=== PATIENT | female | born 1995 | race Two or more races ===

== ENCOUNTER 2017-10-09 12:23 | Emergency (ER) | payer MEDICAID ==
[~2017-10-09] VITALS: Ht 175.3 cm; Wt 110.7 kg
[~2017-10-09 12:23] MED LIST: LEVO50TA53
[2017-10-09 13:15] LABS: Basophils # (auto) 0 uL; Basophils % (auto) 0.5 % (0.0-2.0); Eosinophils # (auto) 0.1 uL; Eosinophils % (auto) 1.6 % (0.0-7.0); Hematocrit 41.7 % (36.0-46.0); Hemoglobin 14.1 g/dL (12.2-16.2); Lymphocytes # (auto) 1.8 uL; Lymphocytes % (auto) 23.3 % (10.0-50.0); Mean Corpuscular Hemoglobin 29.5 pg (28.0-32.0); Mean Corpuscular Hgb Conc. 33.7 g/dL (32.0-36.0); Mean Corpuscular Volume 87.4 fL (80.0-100.0); Monocytes # (auto) 0.6 uL; Monocytes % (auto) 8.3 % (0.0-12.0); Neutrophils # (auto) 5.1 uL; Neutrophils % (auto) 66.3 % (37.0-80.0); Nucleated Red Blood Cells % 0.1 %; Platelet Count (auto) 240 10^3/uL (140-450); Red Blood Cells 4.77 10^6/uL (4.0-5.20); Red Cell Distribution Width 13.5 % (11.8-14.3); White Blood Cell 7.7 10^3/uL (4.4-10.8)
[2017-10-09 13:29] LABS: Albumin 3.8 g/dL (3.4-5.0); BUN/Creatinine Ratio 5.6; Calcium 8.9 mg/dL (8.5-10.1); Potassium 3.7 mmol/L (3.5-5.1)
[2017-10-09 13:32] LABS: Bilirubin, Total 0.4 mg/dL (0.2-1.0); Total Protein 7.8 g/dL (6.4-8.2)
[2017-10-09 13:49] LABS: Urine Bacteria NONE SEEN /hpf (None Seen); Urine Blood Negative /uL (Negative); Urine Mucus FEW (None Seen); Urine Specific Gravity 1.012 (1.001-1.035); Urine WBC 6 /hpf (0 - 5)
[2017-10-09] MEDS ORDERED: NITROFURANTOIN (MONO) 100 mg CAP PO ONE (14:45)
[2017-10-09] MEDS ORDERED: ONDANSETRON ODT 4 MG TAB PO ONE (14:45)
[2017-10-09 15:07] VITALS: BP 125/74
== END 2017-10-09 16:20 | disposition home or self-care (01) ==
LOC: ER 12:23
DX: N39.0 Urinary tract infection, site not specified (principal)
CPT/HCPCS: 36415; 80053; 81001; 81025; 85025; 99284; Q0162

== ENCOUNTER 2018-08-31 23:38 | Emergency (ER) | payer MEDICAID ==
[~2018-08-31] VITALS: Ht 175.3 cm; Wt 93.0 kg
[2018-08-31 23:53] VITALS: BP 128/79
[2018-09-01] MEDS ORDERED: ACETAMINOPHEN/CODEINE#3 (300/30mg) TAB PO ONE (03:45)
[2018-09-01] MEDS ORDERED: IBUPROFEN 800 MG TAB PO ONE (03:45)
== END 2018-09-01 04:20 | disposition home or self-care (01) ==
LOC: ER 23:41
DX: S92.515A Nondisplaced fracture of proximal phalanx of left lesser toe(s), initial encounter for closed fracture (principal); W22.8XXA Striking against or struck by other objects, initial encounter; Y93.01 Activity, walking, marching and hiking; Y92.89 Other specified places as the place of occurrence of the external cause; Y99.8 Other external cause status
CPT/HCPCS: 73630

== ENCOUNTER 2019-03-08 22:49 | Emergency (ER) | payer MEDICAID ==
[~2019-03-08] VITALS: Ht 175.3 cm; Wt 99.8 kg
[2019-03-09 01:55] VITALS: BP 150/92
[2019-03-09] MEDS ORDERED: methylPREDNISolone SOD SUCC 125 MG/2 ML VL IM ONE (02:15)
[2019-03-09] MEDS ORDERED: cefTRIAXone SOD 1,000 MG VL IM ONE (02:15)
[2019-03-09] MEDS ORDERED: ACETAMINOPHEN/CODEINE#3 (300/30mg) TAB PO ONE (02:15)
[2019-03-09] MEDS ORDERED: LIDOCAINE 1% HCL (LOCAL ANESTH.) INJ 20ML MDV IJ ONE (02:30)
== END 2019-03-09 02:59 | disposition home or self-care (01) ==
LOC: ER 22:49
DX: J03.80 Acute tonsillitis due to other specified organisms (principal); B96.89 Other specified bacterial agents as the cause of diseases classified elsewhere
CPT/HCPCS: 96372; 99283; J0696; J2001; J2930

== ENCOUNTER 2019-03-29 17:50 | Emergency (ER) | payer MEDICAID ==
[~2019-03-29] VITALS: Ht 175.3 cm; Wt 99.8 kg
[2019-03-29 18:07] VITALS: BP 130/91
== END 2019-03-29 21:35 | disposition home or self-care (01) ==
LOC: ER 17:57
DX: S09.90XA Unspecified injury of head, initial encounter (principal); F17.210 Nicotine dependence, cigarettes, uncomplicated; W01.0XXA Fall on same level from slipping, tripping and stumbling without subsequent striking against object, initial encounter; Y93.89 Activity, other specified; Y99.8 Other external cause status; Y92.89 Other specified places as the place of occurrence of the external cause
CPT/HCPCS: 70450

== ENCOUNTER 2019-07-29 23:40 | Emergency (ER) | payer MEDICAID ==
[~2019-07-29] VITALS: Ht 175.3 cm; Wt 104.3 kg
[2019-07-30 03:07] VITALS: BP 124/70
== END 2019-07-30 04:24 | disposition home or self-care (01) ==
LOC: ER 23:40
DX: J03.80 Acute tonsillitis due to other specified organisms (principal); B96.89 Other specified bacterial agents as the cause of diseases classified elsewhere; F17.210 Nicotine dependence, cigarettes, uncomplicated

== ENCOUNTER 2020-03-13 21:11 | Emergency (ER) | payer MEDICAID ==
[~2020-03-13] VITALS: Ht 177.8 cm; Wt 111.1 kg
[2020-03-13 21:33] VITALS: BP 138/97
[2020-03-14 00:38] LABS: Basophils # (auto) 0 10 ^3/uL (0-0.2); Basophils % (auto) 0.3 % (0.0-2.0); Eosinophils # (auto) 0.1 10 ^3/uL (0-0.8); Hematocrit 45.6 % (36.0-46.0); Hemoglobin 15.2 g/dL (12.2-16.2); Lymphocytes # (auto) 1.5 10 ^3/uL (0.4-5.4); Lymphocytes % (auto) 25.4 % (10.0-50.0); Mean Corpuscular Hemoglobin 29.8 pg (28.0-32.0); Mean Corpuscular Hgb Conc. 33.4 g/dL (32.0-36.0); Mean Corpuscular Volume 89.3 fL (80.0-100.0); Monocytes # (auto) 0.5 10 ^3/uL (0-1.3); Monocytes % (auto) 9.4 % (0.0-12.0); Neutrophils # (auto) 3.7 10 ^3/uL (1.6-8.6); Neutrophils % (auto) 63.9 % (37.0-80.0); Platelet Count (auto) 184 10^3/uL (140-450); White Blood Cell 5.8 10^3/uL (4.4-10.8)
[2020-03-14 00:57] LABS: Albumin 3.7 g/dL (3.4-5.0); Calcium 8.6 mg/dL (8.5-10.1); Potassium 3.5 mmol/L (3.5-5.1)
[2020-03-14 00:59] LABS: BUN/Creatinine Ratio 8.1
[2020-03-14 01:02] LABS: Bilirubin, Total 0.3 mg/dL (0.2-1.0); Total Protein 8.5 g/dL (6.4-8.2)
== END 2020-03-14 02:47 | disposition home or self-care (01) ==
LOC: ER 21:13
DX: U07.1 COVID-19 (principal); J01.00 Acute maxillary sinusitis, unspecified; F17.210 Nicotine dependence, cigarettes, uncomplicated
CPT/HCPCS: 36415; 71045; 80053; 85025; 87070; 87426; 87804; 87880

== ENCOUNTER 2020-03-16 00:28 | Inpatient (IN) | payer MEDICAID ==
[~2020-03-16] VITALS: Ht 177.8 cm; Wt 109.3 kg
[2020-03-16] MEDS ORDERED: ACETAMINOPHEN 500 MG TAB PO ONE (01:15)
[2020-03-16] MEDS ORDERED: DexAMETHasone SOD PHOS 10MG/1ML VIAL INJ IV ONE (03:45)
[2020-03-16] MEDS ORDERED: ASCORBIC ACID 500 MG TAB PO ONE (03:45)
[2020-03-16] MEDS ORDERED: AZITHROMYCIN 500MG/ 250ML 250 ML IV ONE (03:45)
[2020-03-16] MEDS ORDERED: ZINC SULFATE 220mg CAP or TAB PO ONE (03:45)
[2020-03-16 03:59] LABS: Basophils # (auto) 0 10 ^3/uL (0-0.2); Basophils % (auto) 0.2 % (0.0-2.0); Eosinophils # (auto) 0 10 ^3/uL (0-0.8); Hematocrit 45.1 % (36.0-46.0); Hemoglobin 15.4 g/dL (12.2-16.2); Lymphocytes # (auto) 1.9 10 ^3/uL (0.4-5.4); Mean Corpuscular Hemoglobin 30.4 pg (28.0-32.0); Mean Corpuscular Hgb Conc. 34.1 g/dL (32.0-36.0); Monocytes # (auto) 1.3 10 ^3/uL (0-1.3); Monocytes % (auto) 12.3 % (0.0-12.0); Neutrophils # (auto) 7.7 10 ^3/uL (1.6-8.6); Neutrophils % (auto) 70.5 % (37.0-80.0); Nucleated Red Blood Cells % 0.1 %; Platelet Count (auto) 199 10^3/uL (140-450); Red Blood Cells 5.07 10^6/uL (4.0-5.20); White Blood Cell 10.9 10^3/uL (4.4-10.8)
[2020-03-16 04:20] LABS: Albumin 3.6 g/dL (3.4-5.0); Calcium 8.8 mg/dL (8.5-10.1); Potassium 3.3 mmol/L (3.5-5.1)
[2020-03-16 04:23] LABS: BUN/Creatinine Ratio 12.6; Bilirubin, Total 0.3 mg/dL (0.2-1.0); CRP High Sensitivity 0.06 mg/dL (< 0.3); Total Protein 8.4 g/dL (6.4-8.2)
[2020-03-16] MEDS ORDERED: ACETAMINOPHEN 325 MG TAB PO PRN (04:30)
[2020-03-16] MEDS ORDERED: DOCUSATE SOD 100 MG CAP PO PRN (04:30)
[2020-03-16] MEDS ORDERED: MORPHINE SULF INJ 2 MG/ML SYRINGE 1ML IV PRN (04:30)
[2020-03-16 04:45] VITALS: BP 122/73
[2020-03-16] MEDS: SODIUM CHLORIDE 0.9% 1,000 ML IV SCH ×2 (05:36→06:58)
[2020-03-16] MEDS: ALBUTEROL SULF HFA 90MCG INH 200DOSE IN SCH ×4 (06:00→21:44)
[2020-03-16] MEDS: DOXYCYCLINE 100 MG TAB/CAP PO SCH ×2 (08:09→22:34)
[2020-03-16] MEDS: ASCORBIC ACID 1,000 MG TAB PO SCH (08:09)
[2020-03-16] MEDS: ZINC SULFATE 220mg CAP or TAB PO SCH (08:09)
[2020-03-16] MEDS: ENOXAPARIN SOD 40 MG/0.4 ML SYRINGE SC SCH (08:09)
[2020-03-16 09:01] LABS: Basophils # (auto) 0 10 ^3/uL (0-0.2); Basophils % (auto) 0.1 % (0.0-2.0); Eosinophils # (auto) 0 10 ^3/uL (0-0.8); Hematocrit 48.8 % (36.0-46.0); Hemoglobin 15.9 g/dL (12.2-16.2); Lymphocytes # (auto) 1.6 10 ^3/uL (0.4-5.4); Lymphocytes % (auto) 14.1 % (10.0-50.0); Mean Corpuscular Hemoglobin 29.2 pg (28.0-32.0); Mean Corpuscular Hgb Conc. 32.6 g/dL (32.0-36.0); Mean Corpuscular Volume 89.5 fL (80.0-100.0); Monocytes # (auto) 0.6 10 ^3/uL (0-1.3); Monocytes % (auto) 5.1 % (0.0-12.0); Neutrophils # (auto) 8.9 10 ^3/uL (1.6-8.6); Neutrophils % (auto) 80.7 % (37.0-80.0); Nucleated Red Blood Cells % 0.1 %; Platelet Count (auto) 215 10^3/uL (140-450); Red Blood Cells 5.45 10^6/uL (4.0-5.20); Red Cell Distribution Width 14.4 % (11.8-14.3)
[2020-03-16 09:16] LABS: Calcium 8.8 mg/dL (8.5-10.1); Magnesium 2.3 mg/dL (1.6-2.6); Potassium 3.7 mmol/L (3.5-5.1)
[2020-03-16 09:19] LABS: BUN/Creatinine Ratio 13.9
[2020-03-16 11:15] VITALS: BP 120/89
[2020-03-16 13:37] VITALS: BP 120/89
[2020-03-16 17:23] VITALS: BP 124/78
--- NOTE | 2020-03-16 19:30 | NUR ---
opening note pt A&Ox4. respirations even and nonlabored on 2Lnc. pt denies pain or discomfort at this time, will continue to monitor. POC discussed with pt, and pt verbalized understanding. bed in low locked position, side rails up x2, call light within reach.
[2020-03-16 22:00] VITALS: BP 107/79
[2020-03-16] MEDS: ONDANSETRON HCL 4 MG/2 ML VIAL IV PRN (22:35)
[2020-03-16] MEDS: HYDROcodone-ACET 5/325MG TAB PO PRN (23:11)
[2020-03-17 05:00] VITALS: BP 114/74
--- NOTE | 2020-03-17 07:22 | NUR ---
closing note pt resting in semi fowlers with HOB at 30 degrees. respirations even nonlabored on 2Lnc. endorsed care to day shift ZENAIDA Mayorga.
--- NOTE | 2020-03-17 07:49 | NUR ---
OPENING SHIFT NOTE Resumed care of patient. Patient is awake and A&OX4. PT is on 2L O2. No S/S of distress or SOB. Bed locked, in lowest position, call light within reach, side rails up x2, bed alarm on for safety. Will continue to monitor for changes Q1hr and PRN.
[2020-03-17] MEDS: ALBUTEROL SULF HFA 90MCG INH 200DOSE IN SCH ×3 (07:50→22:59)
[2020-03-17 08:16] LABS: Basophils # (auto) 0 10 ^3/uL (0-0.2); Basophils % (auto) 0.1 % (0.0-2.0); Eosinophils # (auto) 0 10 ^3/uL (0-0.8); Hematocrit 42.3 % (36.0-46.0); Hemoglobin 14.5 g/dL (12.2-16.2); Lymphocytes # (auto) 2.3 10 ^3/uL (0.4-5.4); Lymphocytes % (auto) 26.6 % (10.0-50.0); Mean Corpuscular Hemoglobin 30.5 pg (28.0-32.0); Mean Corpuscular Hgb Conc. 34.2 g/dL (32.0-36.0); Mean Corpuscular Volume 89.3 fL (80.0-100.0); Monocytes % (auto) 11.8 % (0.0-12.0); Neutrophils # (auto) 5.3 10 ^3/uL (1.6-8.6); Neutrophils % (auto) 61.5 % (37.0-80.0); Nucleated Red Blood Cells % 0.1 %; Platelet Count (auto) 170 10^3/uL (140-450); Red Blood Cells 4.74 10^6/uL (4.0-5.20); Red Cell Distribution Width 14.2 % (11.8-14.3); White Blood Cell 8.6 10^3/uL (4.4-10.8)
[2020-03-17] MEDS: HYDROcodone-ACET 5/325MG TAB PO PRN (08:24)
[2020-03-17] MEDS: ACETAMINOPHEN 500 MG TAB PO PRN ×2 (08:24→16:31)
[2020-03-17 08:32] LABS: Albumin 3.1 g/dL (3.4-5.0); Calcium 8.2 mg/dL (8.5-10.1); Potassium 3.7 mmol/L (3.5-5.1)
[2020-03-17 08:35] LABS: BUN/Creatinine Ratio 15.4
[2020-03-17 08:37] LABS: Bilirubin, Total 0.5 mg/dL (0.2-1.0); Total Protein 7.5 g/dL (6.4-8.2)
[2020-03-17 09:00] VITALS: BP 128/77
[2020-03-17] MEDS: ASCORBIC ACID 1,000 MG TAB PO SCH (10:16)
[2020-03-17] MEDS: ZINC SULFATE 220mg CAP or TAB PO SCH (10:16)
[2020-03-17] MEDS: DOXYCYCLINE 100 MG TAB/CAP PO SCH (10:16)
[2020-03-17] MEDS: ENOXAPARIN SOD 40 MG/0.4 ML SYRINGE SC SCH (10:16)
[2020-03-17] MEDS: SODIUM CHLORIDE 0.9% 1,000 ML IV SCH (10:17)
--- NOTE | 2020-03-17 10:28 | NUR ---
PTS TEMP WAS 103.2. ADMINISTERED PRN MEDICATION ORDERED AND APPLIED COOLING MEASURES. PTS TEMP NOW 99.1. WILL CONTINUE TO MONITOR.
[2020-03-17 13:24] VITALS: BP 111/68
[2020-03-17] MEDS: ONDANSETRON HCL 4 MG/2 ML VIAL IV PRN ×2 (14:42→21:02)
--- NOTE | 2020-03-17 16:31 | NUR ---
PTS TEMP IS 103.0 WILL ADMINISTER PRN MEDICATION PER MD ORDERS AND INITIATE COOLING MEASURES.
[2020-03-17 17:17] VITALS: BP 121/66
--- NOTE | 2020-03-17 21:00 | NUR ---
cooling measures initiated, temp 102.7
[2020-03-17 22:12] VITALS: BP 119/75
[2020-03-18] MEDS: DOXYCYCLINE 100 MG TAB/CAP PO SCH ×3 (00:06→21:21)
[2020-03-18] MEDS: ONDANSETRON HCL 4 MG/2 ML VIAL IV PRN ×3 (01:18→18:59)
[2020-03-18] MEDS: ACETAMINOPHEN 500 MG TAB PO PRN ×3 (04:05→20:19)
[2020-03-18 05:00] VITALS: BP 114/61
--- NOTE | 2020-03-18 05:00 | NUR ---
temp 101
[2020-03-18] MEDS: SODIUM CHLORIDE 0.9% 1,000 ML IV SCH ×3 (06:34→21:21)
--- NOTE | 2020-03-18 07:30 | NUR ---
Opening Shift Note Assumed care of patient, awake and alert. No S/S of distress/SOB or pain. Instructed on POC and to call for assist PRN, will continue to monitor for changes Q1hr and PRN. Fall precautions in place per safety protocol.
[2020-03-18] MEDS: ALBUTEROL SULF HFA 90MCG INH 200DOSE IN SCH ×3 (07:42→23:10)
[2020-03-18 07:58] LABS: Basophils # (auto) 0 10 ^3/uL (0-0.2); Eosinophils # (auto) 0 10 ^3/uL (0-0.8); Hematocrit 39.8 % (36.0-46.0); Hemoglobin 13.3 g/dL (12.2-16.2); Lymphocytes # (auto) 1.5 10 ^3/uL (0.4-5.4); Lymphocytes % (auto) 13.8 % (10.0-50.0); Mean Corpuscular Hemoglobin 29.8 pg (28.0-32.0); Mean Corpuscular Hgb Conc. 33.5 g/dL (32.0-36.0); Mean Corpuscular Volume 89.2 fL (80.0-100.0); Monocytes # (auto) 0.6 10 ^3/uL (0-1.3); Neutrophils # (auto) 9.1 10 ^3/uL (1.6-8.6); Neutrophils % (auto) 81.2 % (37.0-80.0); Nucleated Red Blood Cells % 0.1 %; Platelet Count (auto) 149 10^3/uL (140-450); Red Blood Cells 4.46 10^6/uL (4.0-5.20); Red Cell Distribution Width 13.6 % (11.8-14.3); White Blood Cell 11.1 10^3/uL (4.4-10.8)
[2020-03-18 08:28] LABS: Potassium 3.1 mmol/L (3.5-5.1)
[2020-03-18 08:35] LABS: BUN/Creatinine Ratio 11.7
[2020-03-18 09:25] VITALS: BP 114/68
[2020-03-18] MEDS: ASCORBIC ACID 1,000 MG TAB PO SCH (09:40)
[2020-03-18] MEDS: ENOXAPARIN SOD 40 MG/0.4 ML SYRINGE SC SCH (09:40)
[2020-03-18] MEDS: ZINC SULFATE 220mg CAP or TAB PO SCH (09:41)
--- NOTE | 2020-03-18 12:00 | NUR ---
MD Munoz at bedside MD Munoz at bedside, aware of patient status including patient vomiting and continuous nausea. Per MD Munoz, increase fluids to 100mls/hr and new orders for reglan received. Per MD Munoz, patient may shower. Will carry out new orders and cont to ,monitor patient.
[2020-03-18] MEDS: METOCLOPRAMIDE HCL 5MG/ml INJ 2ml VIAL IV PRN ×2 (12:57→20:39)
--- NOTE | 2020-03-18 12:57 | NUR ---
Est energy needs 2812-2561 kcal (14-18 kcal/kg BW 109.3kg) Est protein needs 68-89g (1-1.3g/kg IBW 68kg) Will reassess prn. Addendum: 03/18/20 at [address] Amended: Links added.
[2020-03-18 13:20] VITALS: BP 135/73
[2020-03-18 17:00] VITALS: BP 130/80
[2020-03-18 22:00] VITALS: BP 119/73
[2020-03-19] MEDS: ONDANSETRON HCL 4 MG/2 ML VIAL IV PRN ×2 (00:15→03:55)
[2020-03-19 01:46] VITALS: BP 119/73
[2020-03-19 05:00] VITALS: BP 129/68
[2020-03-19] MEDS: ALBUTEROL SULF HFA 90MCG INH 200DOSE IN SCH ×3 (07:20→23:20)
[2020-03-19 07:23] LABS: Basophils # (auto) 0 10 ^3/uL (0-0.2); Basophils % (auto) 0.1 % (0.0-2.0); Eosinophils # (auto) 0 10 ^3/uL (0-0.8); Hemoglobin 13.1 g/dL (12.2-16.2); Lymphocytes # (auto) 1.1 10 ^3/uL (0.4-5.4); Lymphocytes % (auto) 10.5 % (10.0-50.0); Mean Corpuscular Hemoglobin 29.8 pg (28.0-32.0); Mean Corpuscular Hgb Conc. 33.6 g/dL (32.0-36.0); Mean Corpuscular Volume 88.8 fL (80.0-100.0); Monocytes # (auto) 0.5 10 ^3/uL (0-1.3); Monocytes % (auto) 5.1 % (0.0-12.0); Neutrophils # (auto) 8.7 10 ^3/uL (1.6-8.6); Neutrophils % (auto) 84.3 % (37.0-80.0); Platelet Count (auto) 159 10^3/uL (140-450); Red Cell Distribution Width 13.8 % (11.8-14.3); White Blood Cell 10.3 10^3/uL (4.4-10.8)
[2020-03-19 07:46] LABS: BUN/Creatinine Ratio 10.3; Calcium 8.2 mg/dL (8.5-10.1); Potassium 3.1 mmol/L (3.5-5.1)
[2020-03-19] MEDS: METOCLOPRAMIDE HCL 5MG/ml INJ 2ml VIAL IV PRN ×2 (07:59→16:53)
[2020-03-19 08:55] VITALS: BP 109/61
[2020-03-19] MEDS: ZINC SULFATE 220mg CAP or TAB PO SCH (10:00)
[2020-03-19] MEDS: DOXYCYCLINE 100 MG TAB/CAP PO SCH ×2 (10:00→21:41)
[2020-03-19] MEDS: ENOXAPARIN SOD 40 MG/0.4 ML SYRINGE SC SCH (10:00)
[2020-03-19] MEDS: ASCORBIC ACID 1,000 MG TAB PO SCH (10:00)
[2020-03-19] MEDS: SODIUM CHLORIDE 0.9% 1,000 ML IV SCH ×2 (11:10→18:30)
[2020-03-19] MEDS: POTASSIUM CHL 20MEQ/100ML 100 ML IV SCH ×2 (11:27→13:39)
[2020-03-19 13:00] VITALS: BP 116/66
[2020-03-19] MEDS: ACETAMINOPHEN 500 MG TAB PO PRN (16:47)
[2020-03-19 16:53] VITALS: BP 110/62
--- NOTE | 2020-03-19 17:45 | NUR ---
Temp Patient has temp of 100.2. Administered Tylenol, reassessment was still 100.2. Cooling measures performed, fan on, and blankets off. Will cont to monitor patient.
[2020-03-19 22:00] VITALS: BP 107/65
[2020-03-20] MEDS: METOCLOPRAMIDE HCL 5MG/ml INJ 2ml VIAL IV PRN ×2 (00:31→21:42)
--- NOTE | 2020-03-20 00:43 | NUR ---
ATTEMPTED TO TITRATE PATIENT DOWN FROM 4L TO 2L. AFTER BRINGING PT DOWN TO 2L, O2 SATURATION WAS AT 95%. AFTER LEAVING ROOM, PATIENT STATED THAT "I CANNOT BREATH". PATIENT BROUGHT BACK UP TO 4L. PATIENT SATURATING AT 91%. WILL ATTEMPT AT LATER TIME.
[2020-03-20] MEDS: SODIUM CHLORIDE 0.9% 1,000 ML IV SCH ×2 (04:30→15:44)
[2020-03-20 04:55] VITALS: BP 127/73
[2020-03-20 07:09] LABS: Basophils # (auto) 0 10 ^3/uL (0-0.2); Basophils % (auto) 0.2 % (0.0-2.0); Eosinophils # (auto) 0 10 ^3/uL (0-0.8); Eosinophils % (auto) 0.1 % (0.0-7.0); Hematocrit 37.7 % (36.0-46.0); Hemoglobin 12.8 g/dL (12.2-16.2); Lymphocytes # (auto) 1.3 10 ^3/uL (0.4-5.4); Lymphocytes % (auto) 21.1 % (10.0-50.0); Mean Corpuscular Hemoglobin 30.5 pg (28.0-32.0); Mean Corpuscular Hgb Conc. 33.9 g/dL (32.0-36.0); Monocytes # (auto) 0.5 10 ^3/uL (0-1.3); Neutrophils # (auto) 4.4 10 ^3/uL (1.6-8.6); Neutrophils % (auto) 70.6 % (37.0-80.0); Nucleated Red Blood Cells % 0.2 %; Platelet Count (auto) 183 10^3/uL (140-450); Red Blood Cells 4.19 10^6/uL (4.0-5.20); Red Cell Distribution Width 13.9 % (11.8-14.3); White Blood Cell 6.3 10^3/uL (4.4-10.8)
[2020-03-20] MEDS: ALBUTEROL SULF HFA 90MCG INH 200DOSE IN SCH ×3 (07:17→22:20)
[2020-03-20 07:34] LABS: Potassium 3.2 mmol/L (3.5-5.1)
[2020-03-20 07:40] LABS: Albumin 2.5 g/dL (3.4-5.0); BUN/Creatinine Ratio 11.6; Calcium 8.1 mg/dL (8.5-10.1); Total Protein 6.8 g/dL (6.4-8.2)
[2020-03-20 07:48] LABS: Bilirubin, Total 0.4 mg/dL (0.2-1.0)
--- NOTE | 2020-03-20 07:50 | NUR ---
OPENING NOTE ASSUMED CARE OF PT. ALERT AND ORIENTED. NO S/S OF SOB/DISTRESS NOTED. BED SET TO LOWEST POSITION/LOCKED. BEDSIDE RAILS UP X2. CALL LIGHT WITHIN REACH. INSTRUCTED PT TO CALL FOR ASSISTANCE. UPDATED ON POC. PT VERBALIZED UNDERSTANDING. WILL CONTINUE TO MONITOR Q1HR AND PRN.
[2020-03-20 09:00] VITALS: BP 111/74
[2020-03-20] MEDS: ZINC SULFATE 220mg CAP or TAB PO SCH (10:00)
[2020-03-20] MEDS: ASCORBIC ACID 1,000 MG TAB PO SCH (10:00)
[2020-03-20] MEDS: ENOXAPARIN SOD 40 MG/0.4 ML SYRINGE SC SCH (10:00)
[2020-03-20] MEDS: DOXYCYCLINE 100 MG TAB/CAP PO SCH ×2 (10:04→21:42)
[2020-03-20 13:00] VITALS: BP 134/90
[2020-03-20 17:00] VITALS: BP 107/50
[2020-03-20 22:00] VITALS: BP 138/79
[2020-03-21] MEDS: SODIUM CHLORIDE 0.9% 1,000 ML IV SCH ×3 (00:32→21:52)
[2020-03-21 05:00] VITALS: BP 115/76
[2020-03-21] MEDS: ALBUTEROL SULF HFA 90MCG INH 200DOSE IN SCH ×3 (07:04→22:46)
[2020-03-21 09:00] VITALS: BP 125/84
[2020-03-21] MEDS: DOXYCYCLINE 100 MG TAB/CAP PO SCH (09:51)
[2020-03-21] MEDS: ENOXAPARIN SOD 40 MG/0.4 ML SYRINGE SC SCH (09:51)
[2020-03-21] MEDS: ZINC SULFATE 220mg CAP or TAB PO SCH (09:51)
[2020-03-21] MEDS: ASCORBIC ACID 1,000 MG TAB PO SCH (09:51)
[2020-03-21 11:00] VITALS: BP 125/84
--- NOTE | 2020-03-21 12:56 | NUR ---
Nutrition Followup Notes Wt: 109.3 kg Unable to speak to pt d/t pt is positive for COVID. Pt is with a CCHO 60g cardiac diet, with inadequate PO of < 50% x 4 per RN doc as pt is refusing PO Est energy needs 4177-1606 kcal (14-18 kcal/kg BW 109.3kg) Est protein needs 68-89g (1-1.3g/kg IBW 68kg) Will reassess prn. LABS: CA 8.1 L, ALB 2.5 L GI: Pt had 1 BM today per RN doc BS: 20 low risk. Refer to wound assessment report for full details. PES: Obesity aeb pt with a BMI of 34.6kg/m2 r/t caloric intake in excess of needs Comments: Will continue to monitor PO status, skin status, pertinent labs and weight trends. Will f/u in 3-5 days. Rec: 1) consider Glucerna a 1 carton bid as PO is low. 2) refer pt to [facility] on Dc 3) Continue current plan of care
[2020-03-21 13:00] VITALS: BP 127/89
--- NOTE | 2020-03-21 14:16 | NUR ---
assessment Patient is a 25 year old female who is alert and oriented and covid positive. Patients cognitive abilities are intact. Prior to admission patient lived home with family and functioned independently. Patient informed me she is able to care for her own ADLs. Per patient she will return home to her prior living arrangements post discharge and family will transport her home. Patients PCP is Dr Terrazas. Patient informed me she came to ER for body aches, fever, and shortness of breath. I informed patient I will continue to monitor and follow up as appropriate for any discharge needs. I informed patient she has a right to speak to a psych social worker regarding all care. I informed patient she has a right to participate in any and all discharge planning. Patient does not have a POA and advanced directive. I have offered patient information on POA and advanced directives. I informed the patient the advantages and benefits of having an Advanced Directive. Patient verbalized understanding and agreed to discharge plan home. Addendum: 03/21/20 at 1420 by Uzma LUTZ Amended: Links added.
[2020-03-21 17:00] VITALS: BP 132/78
--- NOTE | 2020-03-21 20:00 | NUR ---
Opening Shift Note Assumed care of patient. Awake, alert and oriented x4. No S/S of distress/SOB or pain. Pt is sitting up in bed, on 2L NC with even and unlabored respirations. Instructed on POC and to call for assist PRN. Bed locked, in lowest position, call light within reach, side rails up x2. Will continue to monitor for changes Q1hr and PRN.
[2020-03-21 21:37] VITALS: BP 133/83
[2020-03-22 04:52] VITALS: BP 117/79
[2020-03-22] MEDS: SODIUM CHLORIDE 0.9% 1,000 ML IV SCH (05:57)
[2020-03-22] MEDS: METOCLOPRAMIDE HCL 5MG/ml INJ 2ml VIAL IV PRN (06:13)
[2020-03-22 07:45] LABS: Basophils # (auto) 0 10 ^3/uL (0-0.2); Basophils % (auto) 0.3 % (0.0-2.0); Eosinophils # (auto) 0.1 10 ^3/uL (0-0.8); Eosinophils % (auto) 2.3 % (0.0-7.0); Hematocrit 39.1 % (36.0-46.0); Hemoglobin 13.4 g/dL (12.2-16.2); Lymphocytes # (auto) 1.4 10 ^3/uL (0.4-5.4); Lymphocytes % (auto) 25.5 % (10.0-50.0); Mean Corpuscular Hemoglobin 30.6 pg (28.0-32.0); Mean Corpuscular Hgb Conc. 34.4 g/dL (32.0-36.0); Monocytes # (auto) 0.6 10 ^3/uL (0-1.3); Monocytes % (auto) 10.5 % (0.0-12.0); Neutrophils # (auto) 3.4 10 ^3/uL (1.6-8.6); Neutrophils % (auto) 61.4 % (37.0-80.0); Nucleated Red Blood Cells % 0.1 %; Platelet Count (auto) 287 10^3/uL (140-450); Red Blood Cells 4.39 10^6/uL (4.0-5.20); White Blood Cell 5.6 10^3/uL (4.4-10.8)
[2020-03-22 08:00] VITALS: BP 130/76
[2020-03-22 08:04] LABS: BUN/Creatinine Ratio 13.6; Calcium 8.5 mg/dL (8.5-10.1); Potassium 3.1 mmol/L (3.5-5.1)
[2020-03-22] MEDS: ALBUTEROL SULF HFA 90MCG INH 200DOSE IN SCH ×3 (08:35→22:23)
[2020-03-22 09:00] VITALS: BP 130/76
[2020-03-22] MEDS: ZINC SULFATE 220mg CAP or TAB PO SCH (09:18)
[2020-03-22] MEDS: ENOXAPARIN SOD 40 MG/0.4 ML SYRINGE SC SCH (09:18)
[2020-03-22] MEDS: ASCORBIC ACID 1,000 MG TAB PO SCH (09:18)
[2020-03-22] MEDS ORDERED: POTASSIUM CHL 20 Meq TABLET PO ONE (10:15)
--- NOTE | 2020-03-22 12:55 | NUR ---
Dr Torres bedside with patient. Orders received and carried out
[2020-03-22 13:00] VITALS: BP 145/85
--- NOTE | 2020-03-22 13:15 | NUR ---
TITRATE PATIENT DOWN FROM 3L TO 2L. Patient titrated down from 3L to 2L, patient sustaining 02 at 93%.
[2020-03-22 17:00] VITALS: BP 130/85
--- NOTE | 2020-03-22 18:48 | NUR ---
TITRATED PATIENT DOWN FROM 2L TO 1L. Patient titrated from 2L to 1L 02. Patient 02 sustaining at 92%. Will continue to monitor.
--- NOTE | 2020-03-22 19:45 | NUR ---
Opening Shift Note Assumed care of patient, awake and alert. No S/S of distress/SOB, patient tolerating 1L o2 via nasal cannula. No complaints of pain at this time. POC discussed and questions answered. Bed is locked in lowest position with side rails up x2 for safety. Call light is within reach and patient encouraged to call for assistance PRN, will continue to monitor for changes Q1hr and PRN.
[2020-03-22 22:00] VITALS: BP 120/69
[2020-03-23 05:00] VITALS: BP 126/76
[2020-03-23] MEDS: ALBUTEROL SULF HFA 90MCG INH 200DOSE IN SCH ×3 (08:28→22:39)
[2020-03-23 09:00] VITALS: BP 116/73
[2020-03-23] MEDS: ENOXAPARIN SOD 40 MG/0.4 ML SYRINGE SC SCH (09:06)
[2020-03-23] MEDS: ZINC SULFATE 220mg CAP or TAB PO SCH (09:06)
[2020-03-23] MEDS: ASCORBIC ACID 1,000 MG TAB PO SCH (09:07)
[2020-03-23 09:35] LABS: BUN/Creatinine Ratio 14.5; Calcium 8.8 mg/dL (8.5-10.1); Magnesium 2.7 mg/dL (1.6-2.6); Potassium 3.2 mmol/L (3.5-5.1)
[2020-03-23] MEDS ORDERED: POTASSIUM CHL 20 Meq TABLET PO ONE (11:15)
[2020-03-23 13:00] VITALS: BP 128/87
[2020-03-23 17:00] VITALS: BP 129/80
--- NOTE | 2020-03-23 19:47 | NUR ---
Opening Shift Note Assumed care of patient, awake and alert. No S/S of distress/SOB or pain. Instructed on POC and to call for assist PRN, will continue to monitor for changes Q1hr and PRN.
[2020-03-23] MEDS: ACETAMINOPHEN 500 MG TAB PO PRN (21:33)
[2020-03-23 22:00] VITALS: BP 119/72
[2020-03-24 05:00] VITALS: BP 116/78
[2020-03-24] MEDS: ALBUTEROL SULF HFA 90MCG INH 200DOSE IN SCH ×2 (07:41→14:53)
[2020-03-24 08:06] LABS: BUN/Creatinine Ratio 12.5; CRP High Sensitivity 0.38 mg/dL (< 0.3); Calcium 8.8 mg/dL (8.5-10.1); Potassium 3.4 mmol/L (3.5-5.1)
[2020-03-24] MEDS: ZINC SULFATE 220mg CAP or TAB PO SCH (08:43)
[2020-03-24] MEDS: ASCORBIC ACID 1,000 MG TAB PO SCH (08:44)
[2020-03-24] MEDS: ENOXAPARIN SOD 40 MG/0.4 ML SYRINGE SC SCH (08:44)
[2020-03-24 09:00] VITALS: BP 137/74
--- NOTE | 2020-03-24 09:15 | NUR ---
REGARDING OXYGEN: PATIENT RESTING IN BED ON 2L NC. OXYEGN SATURATIONS AT 95%. ATTEMPTED TO TITRATE PATIENT DOWN TO 1L NC. PATIENT BEGAN TO DESATURATE DOWN TO 88%. PATIENT PLACED ON 1.5L NC. OXYGEN SATURATIONS NOW AT 91-92%. RESPIRATIONS EVEN AND UNLABORED. WILL CONTINUE TO MONITOR.
[2020-03-24 09:22] VITALS: BP 116/78
--- NOTE | 2020-03-24 12:00 | NUR ---
D/C Planning Regarding social service consult for home oxygen. Faxed clinical information to [employer] requesting portable oxygen to be deliver to front lobby and concentrate to home. Per [place] with [employer] portable oxygen will be deliver to the front lobby between 15:00-18:00. Informed ZENAIDA Huang.
[2020-03-24 13:00] VITALS: BP 139/96
[2020-03-24] MEDS ORDERED: DEX4T PO (13:39)
[2020-03-24] MEDS ORDERED: ASCO10003 PO (13:39)
--- NOTE | 2020-03-24 17:36 | NUR ---
Discharge instructions given as ordered. Encourage to follow up with PMD as instructed. INSTRUCTED TO FOLLOW UP WITH PCP AND TAKE MEDICATIONS PRESCRIBED. All questions and concerns addressed. Patient verbalized understanding. Medication reconciliation form completed and copy given to patient. IV removed with catheter intact, pressure dressing applied. Telemetry unit returned to ICU. Patient taken to vehicle via wheelchair with all personal belongings, accompanied by staff and family member. No distress noted at time of departure.
== END 2020-03-24 17:39 | disposition home or self-care (01) | DRG 720 ==
LOC: ER 00:28 → TELE 00:29 → TELE-EAST 11:40
PROVIDERS: ADMIT Hospitalist; ATTEND Internal Medicine Pulmonary Disease
DX: A41.89 Other specified sepsis (principal); U07.1 COVID-19; J96.01 Acute respiratory failure with hypoxia; E66.01 Morbid (severe) obesity due to excess calories; F17.210 Nicotine dependence, cigarettes, uncomplicated; J12.89 Other viral pneumonia; Z68.34 Body mass index [BMI] 34.0-34.9, adult; R00.0 Tachycardia, unspecified; E87.6 Hypokalemia
CPT/HCPCS: 36415; 71045; 80048; 80053; 80061; 82728; 83036; 83605; 83615; 83735; 85025; 85379; 86141; 87040; 93005; 94640; G0378; J1100; J2405; J3480

== ENCOUNTER 2020-06-02 21:25 | Emergency (ER) | payer MEDICAID ==
[~2020-06-02] VITALS: Ht 177.8 cm; Wt 111.1 kg
[~2020-06-02 21:25] MED LIST changes: +ASCO10003 PO; +DEX4T PO
[2020-06-02 22:47] LABS: Basophils # (auto) 0.1 10 ^3/uL (0-0.2); Basophils % (auto) 1.3 % (0.0-2.0); Eosinophils # (auto) 0.8 10 ^3/uL (0-0.8); Eosinophils % (auto) 9.3 % (0.0-7.0); Hematocrit 42.7 % (36.0-46.0); Hemoglobin 14.6 g/dL (12.2-16.2); Lymphocytes # (auto) 2.8 10 ^3/uL (0.4-5.4); Lymphocytes % (auto) 33.9 % (10.0-50.0); Mean Corpuscular Hemoglobin 30.2 pg (28.0-32.0); Mean Corpuscular Hgb Conc. 34.1 g/dL (32.0-36.0); Mean Corpuscular Volume 88.4 fL (80.0-100.0); Monocytes # (auto) 0.6 10 ^3/uL (0-1.3); Neutrophils % (auto) 48.5 % (37.0-80.0); Nucleated Red Blood Cells % 0.1 %; Platelet Count (auto) 252 10^3/uL (140-450); Red Blood Cells 4.83 10^6/uL (4.0-5.20); Red Cell Distribution Width 13.9 % (11.8-14.3); White Blood Cell 8.4 10^3/uL (4.4-10.8)
[2020-06-02 23:06] LABS: Potassium 3.7 mmol/L (3.5-5.1)
[2020-06-02 23:11] LABS: Albumin 3.8 g/dL (3.4-5.0); BUN/Creatinine Ratio 11.8; Bilirubin, Total 0.3 mg/dL (0.2-1.0); Calcium 9.7 mg/dL (8.5-10.1); Total Protein 8.3 g/dL (6.4-8.2)
[2020-06-03 01:46] VITALS: BP 157/90
== END 2020-06-03 02:28 | disposition home or self-care (01) ==
LOC: ER 21:25
DX: B35.0 Tinea barbae and tinea capitis (principal); L65.8 Other specified nonscarring hair loss; L29.8 Other pruritus
CPT/HCPCS: 36415; 80053; 84436; 84443; 84480; 85025

== ENCOUNTER 2022-10-26 11:39 | Emergency (ER) | payer MEDICAID ==
[~2022-10-26] VITALS: Ht 175.3 cm; Wt 122.6 kg
[2022-10-26 11:57] VITALS: BP 144/91
[2022-10-26 13:50] LABS: Basophils # (auto) 0.1 10 ^3/uL (0-0.2); Eosinophils # (auto) 0.3 10 ^3/uL (0-0.8); Eosinophils % (auto) 4.2 % (0.0-7.0); Hematocrit 42.7 % (36.0-46.0); Hemoglobin 14.4 g/dL (12.2-16.2); Lymphocytes # (auto) 2.5 10 ^3/uL (0.4-5.4); Lymphocytes % (auto) 39.5 % (10.0-50.0); Mean Corpuscular Hemoglobin 28.8 pg (28.0-32.0); Mean Corpuscular Hgb Conc. 33.7 g/dL (32.0-36.0); Mean Corpuscular Volume 85.5 fL (80.0-100.0); Monocytes # (auto) 0.5 10 ^3/uL (0-1.3); Monocytes % (auto) 8.5 % (0.0-12.0); Neutrophils % (auto) 46.8 % (37.0-80.0); Nucleated Red Blood Cells % 1.3 %; Red Blood Cells 4.99 10^6/uL (4.0-5.20); Red Cell Distribution Width 15.2 % (11.8-14.3); White Blood Cell 6.3 10^3/uL (4.4-10.8)
[2022-10-26 14:19] LABS: Albumin 3.6 g/dL (3.4-5.0); Calcium 9.1 mg/dL (8.5-10.1); Potassium 4.1 mmol/L (3.5-5.1)
[2022-10-26 14:24] LABS: BUN/Creatinine Ratio 9.2 (10.0-20.0); Bilirubin, Total 0.4 mg/dL (0.2-1.0); Total Protein 8.1 g/dL (6.4-8.2)
[2022-10-26] MEDS ORDERED: PRED20TA2 PO (14:41)
== END 2022-10-26 15:25 | disposition home or self-care (01) ==
LOC: ER 11:39
DX: R20.2 Paresthesia of skin (principal); F32.9 Major depressive disorder, single episode, unspecified; F17.210 Nicotine dependence, cigarettes, uncomplicated
CPT/HCPCS: 36415; 70450; 80053; 85025

== ENCOUNTER 2022-12-24 08:21 | Emergency (ER) | payer MEDICAID ==
[~2022-12-24] VITALS: Ht 177.8 cm; Wt 123.4 kg
[~2022-12-24 08:21] MED LIST changes: +PRED20TA2 PO
[2022-12-24 09:07] VITALS: BP 138/36
[2022-12-24] MEDS ORDERED: IBUP800T27 PO (09:29)
== END 2022-12-24 09:48 | disposition home or self-care (01) ==
LOC: ER 08:21
DX: S93.602A Unspecified sprain of left foot, initial encounter (principal); F17.210 Nicotine dependence, cigarettes, uncomplicated; F32.9 Major depressive disorder, single episode, unspecified; W01.0XXA Fall on same level from slipping, tripping and stumbling without subsequent striking against object, initial encounter; Y93.K1 Activity, walking an animal; Y92.89 Other specified places as the place of occurrence of the external cause; Y99.8 Other external cause status
CPT/HCPCS: 73630

== ENCOUNTER 2023-04-18 17:14 | Emergency (ER) | payer MEDICAID ==
[~2023-04-18] VITALS: Ht 177.8 cm; Wt 122.6 kg
[~2023-04-18 17:14] MED LIST changes: +IBUP-1456 PO
[2023-04-18] MEDS ORDERED: CYCL-837 PO (21:12)
[2023-04-18] MEDS ORDERED: IBUP-1456 PO (21:12)
[2023-04-18] MEDS ORDERED: KETOROLAC TROMETH 60MG/2ML VIAL IM ONE (21:15)
[2023-04-18 22:20] VITALS: BP 135/89; PULSE 79; RESP 18; TEMP 98; O2SAT 99
== END 2023-04-18 22:20 | disposition home or self-care (01) ==
LOC: ER 17:14
DX: S30.0XXA Contusion of lower back and pelvis, initial encounter (principal); F17.210 Nicotine dependence, cigarettes, uncomplicated; Z88.0 Allergy status to penicillin; W22.8XXA Striking against or struck by other objects, initial encounter; Y93.89 Activity, other specified; Y92.89 Other specified places as the place of occurrence of the external cause; Y99.8 Other external cause status
CPT/HCPCS: 72100; 96372; 99283; J1885

== ENCOUNTER 2023-06-16 16:19 | Emergency (ER) | payer MEDICAID ==
[~2023-06-16] VITALS: Ht 180.3 cm; Wt 123.7 kg
[~2023-06-16 16:19] MED LIST changes: +CYCL-837 PO
[2023-06-16 16:53] LABS: Basophils # (auto) 0.1 10 ^3/uL (0-0.2); Basophils % (auto) 0.7 % (0.0-2.0); Eosinophils # (auto) 0.3 10 ^3/uL (0-0.8); Eosinophils % (auto) 3.3 % (0.0-7.0); Hemoglobin 14.1 g/dL (12.2-16.2); Lymphocytes # (auto) 3.5 10 ^3/uL (0.4-5.4); Lymphocytes % (auto) 35.7 % (10.0-50.0); Mean Corpuscular Hemoglobin 28.3 pg (28.0-32.0); Mean Corpuscular Hgb Conc. 33.5 g/dL (32.0-36.0); Mean Corpuscular Volume 84.5 fL (80.0-100.0); Monocytes # (auto) 0.9 10 ^3/uL (0-1.3); Monocytes % (auto) 9.1 % (0.0-12.0); Neutrophils % (auto) 51.2 % (37.0-80.0); Nucleated Red Blood Cells % 0.1 %; Red Blood Cells 4.97 10^6/uL (4.0-5.20); Red Cell Distribution Width 14.7 % (11.8-14.3); White Blood Cell 9.8 10^3/uL (4.4-10.8)
[2023-06-16 17:09] LABS: Alanine Aminotransferase 113 U/L (7-40); Albumin 4.7 g/dL (3.2-4.8); Alkaline Phosphatase 95 U/L (46-116); Anion Gap 10 (5-15); Aspartate Aminotransferase 59 U/L (13-40); BUN/Creatinine Ratio 11.4 (10.0-20.0); Blood Urea Nitrogen 10 mg/dL (9-23); Calcium 9.4 mg/dL (8.7-10.4); Carbon Dioxide 24 mmol/L (20-30); Chloride 108 mmol/L (98-107); Glucose 99 mg/dL (74-106); Potassium 3.7 mmol/L (3.5-5.1); Sodium 142 mmol/L (136-145)
[2023-06-16 17:10] LABS: Bilirubin, Total 0.3 mg/dL (0.2-1.0); Total Protein 7.5 g/dL (5.7-8.2)
[2023-06-16 17:17] LABS: INR 0.93 (0.9-1.15); Partial Thromboplastin Time 25.4 SEC (24.5-34.5); Prothrombin Time 9.8 sec (9.3-11.8)
[2023-06-16] MEDS ORDERED: ALPRAZolam 0.5 MG TAB PO ONE (18:00)
[2023-06-16 22:15] VITALS: BP 148/82; PULSE 101; RESP 18; TEMP 98; O2SAT 98
== END 2023-06-16 22:24 | disposition home or self-care (01) ==
LOC: ER 16:19
DX: R07.89 Other chest pain (principal); R00.0 Tachycardia, unspecified; F41.9 Anxiety disorder, unspecified; E03.9 Hypothyroidism, unspecified; F17.210 Nicotine dependence, cigarettes, uncomplicated; Z79.1 Long term (current) use of non-steroidal anti-inflammatories (NSAID); Z79.899 Other long term (current) drug therapy; Z88.0 Allergy status to penicillin
CPT/HCPCS: 36415; 71045; 80053; 82962; 83735; 83880; 84484; 85025; 85610; 85730; 93005